=== PATIENT | male | born 1975 | race Caucasian/White ===

== ENCOUNTER 2023-10-22 18:47 | Emergency (ER) | payer SELFPAY ==
[2023-10-22] MEDS: Sodium Chloride 0.9% 10 ML Syringe FLUSH PRN (20:04)
[2023-10-22] MEDS: Ketorolac 30 MG/ML SDV IVPUSH ONE (20:08)
[2023-10-22] MEDS: cefTRIAXone 2 GM Vial IVPUSH ONE (20:09)
== END 2023-10-22 20:19 | disposition home or self-care (01) ==
LOC: DL.ED 18:47
DX: J02.0 Streptococcal pharyngitis (principal)
CPT/HCPCS: 87430; 96374; 96375; 99283; J0696; J1885; J3490